=== PATIENT | male | born 2000 | race Caucasian/White ===

== ENCOUNTER 2024-10-21 13:25 | Emergency (ER) | payer BC, OTHER ==
[2024-10-21] MEDS: Diphtheria,Pertussis(Acell),Tetanus Vaccine 0.5 ML Syringe IM ONE (14:24)
== END 2024-10-21 16:08 | disposition left against medical advice (07) ==
LOC: JD.ED 13:25
DX: S02.2XXA Fracture of nasal bones, initial encounter for closed fracture (principal); S01.21XA Laceration without foreign body of nose, initial encounter; Z79.899 Other long term (current) drug therapy; W21.07XA Struck by softball, initial encounter; Z23 Encounter for immunization
CPT/HCPCS: 12011; 70450; 70450-26; 70486; 70486-26; 90471; 90715; 99284-25